=== PATIENT | female | born 1985 | race Caucasian/White ===

== ENCOUNTER 2019-02-18 09:09 | Emergency (ER) | payer OTHER, BC ==
--- NOTE | 2019-02-18 11:57 | ER Document Report ---
ED Medical Screen (RME) - General Chief Complaint: Nausea/Vomiting Stated Complaint: VOMITING/NAUSEA/ABDOMINAL PAIN Time Seen by Provider: 02/18/19 11:54 Mode of Arrival: Ambulatory Information source: Patient Notes: Patient presents complaining of middle upper back pain that she had last week with nausea that resolved and then returned again yesterday. Patient states the vomiting started this morning. Patient denies any cough or cold symptoms. Patient denies any abdominal pain or chest pain. Patient does complain of chills. Patient is concerned about possible gallstones. Patient states that on one episode that she vomited she noticed stones in the emesis. I have greeted and performed a rapid initial assessment of this patient. A comprehensive ED assessment and evaluation of the patient, analysis of test results and completion of the medical decision making process will be conducted by additional ED providers. TRAVEL OUTSIDE OF THE [place] IN LAST 30 DAYS: No - Related Data Allergies/Adverse Reactions: Sulfa (Sulfonamide Antibiotics) Allergy (Verified 02/18/19 09:11) Physical Exam - Vital signs Vitals: Temp Pulse Resp BP Pulse Ox 99.1 F 98 16 111/61 99 02/18/19 09:17 02/18/19 09:17 02/18/19 09:17 02/18/19 09:17 02/18/19 09:17 - Back Back: Tender - Middle thoracic back tenderness Course - Vital Signs Vital signs: Temp Pulse Resp BP Pulse Ox 99.1 F 98 16 111/61 99 02/18/19 09:17 02/18/19 09:17 02/18/19 09:17 02/18/19 09:17 02/18/19 09:17
--- NOTE | 2019-02-18 12:18 | RADIOLOGY REPORT (SQ) ---
EXAM DESCRIPTION: CHEST 2 VIEWS COMPLETED DATE/TIME: 02/18/2019 12:06 pm REASON FOR STUDY: upper back pain COMPARISON: None. EXAM PARAMETERS: NUMBER OF VIEWS: two views TECHNIQUE: Digital Frontal and Lateral radiographic views of the chest acquired. RADIATION DOSE: NA LIMITATIONS: none FINDINGS: LUNGS AND PLEURA: No opacities, masses or pneumothorax. No pleural effusion. MEDIASTINUM AND HILAR STRUCTURES: No masses or contour abnormalities. HEART AND VASCULAR STRUCTURES: Heart normal size. No evidence for failure. BONES: No acute findings. HARDWARE: None in the chest. OTHER: No other significant finding. IMPRESSION: NO ACUTE RADIOGRAPHIC FINDING IN THE CHEST. TECHNICAL DOCUMENTATION: JOB ID: [id number] 2010 [employer]- All Rights Reserved Reading location - IP/workstation name: [email or web address]
[2019-02-18 12:44] LABS: ABSOLUTE LYMPHOCYTES (AUTO) 0.7 10^3/uL (0.5-4.7); ABSOLUTE MONOCYTES (AUTO) 0.2 10^3/uL (0.1-1.4); ABSOLUTE NEUT (AUTO) 4.5 10^3/uL (1.7-8.2); BASOPHILS % (AUTO) 0.2 % (0-2); EOSINOPHILS % (AUTO) 0.1 % (0-6); HEMATOCRIT 34.9 % (36.0-47.0); HEMOGLOBIN 10.9 g/dL (12.0-15.5); LYMPHOCYTES % (AUTO) 12.8 % (13-45); MEAN CORPUSCULAR HEMOGLOBIN 24.2 pg (27.0-33.4); MEAN CORPUSCULAR HGB CONC 31.3 g/dL (32.0-36.0); MEAN CORPUSCULAR VOLUME 77 fl (80-97); MONOCYTES % (AUTO) 2.9 % (3-13); PLATELET COUNT 288 10^3/uL (150-450); RED BLOOD COUNT 4.52 10^6/uL (3.72-5.28); RED CELL DISTRIBUTION WIDTH 16.7 % (11.5-14.0); TOTAL CELLS COUNTED % (AUTO) 100 %; WHITE BLOOD COUNT 5.4 10^3/uL (4.0-10.5)
[2019-02-18 13:02] LABS: ALANINE AMINOTRANSFERASE 25 U/L (9-52); ALBUMIN 4.2 g/dL (3.5-5.0); ALKALINE PHOSPHATASE 48 U/L (38-126); ANION GAP 9 (5-19); ASPARTATE AMINO TRANSFERASE 14 U/L (14-36); BILIRUBIN,DIRECT 0.3 mg/dL (0.0-0.4); BILIRUBIN,TOTAL 0.4 mg/dL (0.2-1.3); BLOOD UREA NITROGEN 14 mg/dL (7-20); CALCIUM 9.4 mg/dL (8.4-10.2); CARBON DIOXIDE 26 mmol/L (22-30); CHLORIDE 105 mmol/L (98-107); GLUCOSE 97 mg/dL (75-110); LIPASE 70.1 U/L (23-300); POTASSIUM 4.2 mmol/L (3.6-5.0); SODIUM 140.4 mmol/L (137-145); TOTAL PROTEIN 7.2 g/dL (6.3-8.2)
--- NOTE | 2019-02-18 13:07 | RADIOLOGY REPORT (SQ) ---
EXAM DESCRIPTION: U/S ABDOMEN LIMITED W/O DOP COMPLETED DATE/TIME: 02/18/2019 12:46 pm REASON FOR STUDY: upper back pain, pt concerned about GB dx COMPARISON: None. TECHNIQUE: Dynamic and static grayscale images acquired of the abdomen and recorded on PACS. Kenyono erick selected color Doppler and spectral images recorded. LIMITATIONS: None. FINDINGS: PANCREAS: No masses. No peripancreatic edema or fluid collections. LIVER: Echotexture is coarse with increased echogenicity consistent with fatty infiltration. LIVER VASCULATURE: Normal directional flow of the main portal vein and hepatic veins. GALLBLADDER: No stones. Normal wall thickness. No pericholecystic fluid. ULTRASOUND-DETECTED GODFREY'S SIGN: Negative. INTRAHEPATIC DUCTS AND COMMON DUCT: CBD and intrahepatic ducts normal caliber. No filling defects. INFERIOR VENA CAVA: Normal flow. AORTA: No aneurysm. RIGHT KIDNEY: Normal size. Normal echogenicity. No solid or suspicious masses. No hydronephrosis. No calcifications. PERITONEAL AND RIGHT PLEURAL SPACE: No ascites or effusions. OTHER: No other significant finding. IMPRESSION: FATTY INFILTRATION OF THE LIVER. No gallstones or acute inflammatory changes. TECHNICAL DOCUMENTATION: JOB ID: [id number] [id number] 2010 [employer]- All Rights Reserved Reading location - IP/workstation name: [email or web address]
[2019-02-18] MEDS ORDERED: ONDANSETRON HCL INJ/PF 4 MG/2 ML SDV IV ONE (15:40)
[2019-02-18] MEDS ORDERED: NORMAL SALINE 1000 ML 1,000 ML IV ONE (15:40)
[2019-02-18 16:23] LABS: APPEARANCE,URINE SLIGHTLY-CLOUDY; BILIRUBIN,URINE NEGATIVE (NEGATIVE); COLOR,URINE YELLOW; GLUCOSE, URINE NEGATIVE (NEGATIVE); KETONES,URINE NEGATIVE (NEGATIVE); LEUKOCYTE ESTERASE,URINE NEGATIVE (NEGATIVE); NITRITE,URINE NEGATIVE (NEGATIVE); PROTEIN,URINE NEGATIVE (NEGATIVE); URINE SPECIFIC GRAVITY 1.026; UROBILINOGEN,URINE NEGATIVE mg/dL (<2.0)
--- NOTE | 2019-02-18 18:40 | ER Document Report ---
ED GI/ - General Chief Complaint: Nausea/Vomiting Stated Complaint: VOMITING/NAUSEA/ABDOMINAL PAIN Time Seen by Provider: 02/18/19 11:54 Primary Care Provider: NOREEN ZABALA [Primary Care Provider] - Follow up as needed Mode of Arrival: Ambulatory Information source: Patient Notes: Patient is a 33-year-old female comes emergency room complaining of nausea and vomiting. 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 The next day and at night she had severe nausea with vomiting and it subsided. States that last night her and her had ordered [employer] for dinner and during the middle the night she had severe onset of nausea and vomiting again. 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 Throughout the morning she sustained even more nausea and discomfort. She believes that it is her gallbladder. Patient has no past medical problems she has had a history of 3 C-sections and tubal ligation. TRAVEL OUTSIDE OF THE [place] IN LAST 30 DAYS: No - HPI Patient complains to provider of: Abdominal pain. No: Dysuria Onset: Last week Timing/Duration: Sudden Quality of pain: Cramping, Sharp Severity at maximum: Moderate Severity in ED: Moderate Pain Level: 3 Location: [facility] Adult Front & Back Diagram: 1 - Area primary discomfort Vaginal bleeding (Compared to normal period): None LMP: February 14, 2019 : 3 Para: 3 - Related Data Allergies/Adverse Reactions: Sulfa (Sulfonamide Antibiotics) Allergy (Verified 02/18/19 09:11) Past Medical History - General Information source: Patient - Social History Smoking Status: Never Smoker Cigarette use (# per day): No Chew tobacco use (# tins/day): No Smoking Education Provided: No Frequency of alcohol use: Occasional Drug Abuse: None Lives with: Family Family History: None, Reviewed & Not Pertinent Patient has suicidal ideation: No Patient has homicidal ideation: No Renal/ Medical History: Denies: Hx Peritoneal Dialysis Past Surgical History: Reports: Hx Section - x3 Review of Systems - Review of Systems Constitutional: No symptoms reported EENT: No symptoms reported Cardiovascular: No symptoms reported Respiratory: No symptoms reported Gastrointestinal: See HPI, Abdominal pain Genitourinary: No symptoms reported Female Genitourinary: No symptoms reported Musculoskeletal: No symptoms reported Skin: No symptoms reported Hematologic/Lymphatic: No symptoms reported Neurological/Psychological: No symptoms reported -: Yes All other systems reviewed and negative Physical Exam - Vital signs Vitals: Temp Pulse Resp BP Pulse Ox 99.1 F 98 16 111/61 99 02/18/19 09:17 02/18/19 09:17 02/18/19 09:17 02/18/19 09:17 02/18/19 09:17 Interpretation: Normal - Notes Notes: PHYSICAL EXAMINATION: GENERAL: well-nourished and in no acute distress. Tired appearing HEAD: Atraumatic, normocephalic. EYES: Pupils equal round and reactive to light, extraocular movements intact, conjunctiva are normal. ENT: Nares patent, oropharynx clear without exudates. Dry mucous membranes noted and oral cavity NECK: Normal range of motion, supple without lymphadenopathy LUNGS: Breath sounds clear to auscultation bilaterally and equal. No wheezes rales or rhonchi. HEART: Regular rate and rhythm without murmurs ABDOMEN: Examination patient's abdomen shows she has bowel sounds in all 4 quads. She has some mild midepigastric to right upper quadrant tenderness to palpation. No guarding, no rebound. No masses appreciated. Female : deferred Musculoskeletal: Normal range of motion, no pitting or edema. No cyanosis. NEUROLOGICAL Normal speech, normal gait. Normal sensory, motor exams PSYCH: Normal mood, normal affect. SKIN: Warm, Dry, normal turgor, no rashes or lesions noted. Course - Re-evaluation Re-evalutation: 02/18/19 18:46 Patient received a liter of fluids and some nausea medication and felt much better. At this point I have had a long discussion with patient told her that she needs to have an outpatient HIDA scan. In the meantime we will treat with Levsin and nausea medication. Informed her she still needs to stay away from fried fatty foods. [facility] so I recommended she contact them for a specialist that they approve of. And we currently have no GI certification engineer here. - Vital Signs Vital signs: Temp Pulse Resp BP Pulse Ox 99.1 F 98 16 111/61 99 02/18/19 09:17 02/18/19 09:17 02/18/19 09:17 02/18/19 09:17 02/18/19 09:17 - Laboratory Result Diagrams: 02/18/19 12:23 02/18/19 12:23 Laboratory results interpreted by me: 02/18/19 02/18/19 12:23 15:55 Hgb 10.9 L Hct 34.9 L MCV 77 L MCH 24.2 L MCHC 31.3 L RDW 16.7 H Seg Neutrophils % 84.0 H Lymphocytes % 12.8 L Monocytes % 2.9 L Urine Blood SMALL H Discharge - Discharge Clinical Impression: Biliary colic symptom Condition: Good Disposition: HOME, SELF-CARE Instructions: Abdominal Pain ([facility]), Gallbladder Disease ([facility]) Additional Instructions: Your labs come back fairly normal. You are slightly anemic at 10.4 believe but as far as your liver functions go those are relatively normal. Without those being out of line as we discussed there is a possibility of a nonfunctioning gallbladder. This can cause all the same signs and symptoms of how you are presenting without having sludge or stone present inside the gallbladder. 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 He may have no or low ejection fraction I should say. May still need a referral to GI and since she go to the [facility] I highly recommend that you contact them to see who they refer to. You must avoid fried fatty foods as we have already discussed as well. I am giving you medication that should help alleviate the discomfort but I can make it all go away. Should you spike a fever or if you have increasing amounts of pain and discomfort return to ER for recheck. Prescriptions: Hyoscyamine Sulfate [Levsin 0.125 Tablet] 0.25 mg PO ACHS PRN #40 tablet PRN Reason: Ondansetron [Zofran Odt 4 mg Tablet] 1 tab PO Q4H PRN #15 tab.rapdis PRN Reason: For Nausea/Vomiting Forms: Parent Work Note [facility]errals: [facility] [Primary [facility] Provider] - Follow up as needed
[2019-02-18 19:07] VITALS: BP 116/52
--- NOTE | 2019-02-18 19:45 | EKG REPORT ---
SEVERITY:- NORMAL ECG - SINUS RHYTHM : Confirmed by: Nga Molina MD 18-Feb-2019 19:44:14
== END 2019-02-18 19:40 | disposition home or self-care (01) ==
LOC: ER 09:09
DX: R10.11 Right upper quadrant pain (principal); R10.816 Epigastric abdominal tenderness; R10.811 Right upper quadrant abdominal tenderness; R11.2 Nausea with vomiting, unspecified; Z88.2 Allergy status to sulfonamides; Z98.51 Tubal ligation status
CPT/HCPCS: 93005; 99284; 96361; 96374; 36415; 83690; 84703; 85025; 80053; 81001; 84484; 71046; 76705; 93010; J2405; J7030